=== PATIENT | male | born 1970 | race Caucasian/White ===

== ENCOUNTER 2016-07-06 06:35 | Outpatient (CLI) | payer MEDICARE, MEDICAID | END 2016-07-06 06:36 | disposition home or self-care (01) | DX: I10 Essential (primary) hypertension (principal); Z79.899 Other long term (current) drug therapy; E78.5 Hyperlipidemia, unspecified ==

== ENCOUNTER 2016-10-06 13:19 | Outpatient (CLI) | payer MEDICARE, OTHER | END 2016-10-06 13:20 | disposition home or self-care (01) | DX: E67.8 Other specified hyperalimentation (principal); E03.9 Hypothyroidism, unspecified ==

== ENCOUNTER 2017-06-12 08:00 | Outpatient (CLI) | payer MEDICARE, OTHER ==
[2017-06-12 13:10] LABS: ALBUMIN 3.7 g/dL (3.2-5.5); ALBUMIN/GLOBULIN RATIO 1.1 (1.0-2.2); BILIRUBIN,TOTAL 0.5 mg/dL (0.2-1.0); CREATININE 1.1 mg/dL (0.6-1.2); TOTAL PROTEIN 7.1 g/dL (6.7-8.2)
== END 2017-06-12 08:01 | disposition home or self-care (01) ==
LOC: LAB.N 08:00
PROVIDERS: ATTEND Internal Medicine Cardiovascular Disease
DX: I10 Essential (primary) hypertension (principal); R00.2 Palpitations
CPT/HCPCS: 36415; 80053

== ENCOUNTER 2017-06-26 08:00 | Outpatient (CLI) | payer MEDICARE, OTHER ==
[2017-06-26 12:46] LABS: BUN - BLOOD UREA NITROGEN 15 mg/dL (6-20); CALCIUM 9.1 mg/dL (8.5-10.3); CARBON DIOXIDE - CO2 27 mmol/L (21-32); CHLORIDE 103 mmol/L (101-111); CREATININE 1.1 mg/dL (0.6-1.2); GFR - MDRD 71 (>89); GLUCOSE 101 mg/dL (70-100); SODIUM 138 mmol/L (135-145)
== END 2017-06-26 08:01 | disposition home or self-care (01) ==
LOC: LAB.N 08:00
PROVIDERS: ATTEND Nurse Practitioner Gerontology
DX: E87.6 Hypokalemia (principal); E03.9 Hypothyroidism, unspecified
CPT/HCPCS: 36415; 80048; 84443

== ENCOUNTER 2017-10-18 11:06 | Outpatient (CLI) | payer MEDICARE, OTHER ==
--- NOTE | 2017-10-18 13:12 | Ultrasound Report ---
COMPLETE ABDOMINAL ULTRASOUND: 10/18/2017 CLINICAL INDICATION: Pain, nausea, constipation. TECHNIQUE: Real-time scanning was performed with representative phlebotomy services static images obtained. FINDINGS: The liver measures 18.9 cm. Hepatic echogenicity is increased, compatible with fatty infiltration. No focal parenchymal lesion or intrahepatic biliary dilatation is present. The common bile duct measures 5 mm. The visualized pancreas is unremarkable. The kidneys are normal, with the right measuring 12.0 cm and the left measuring 13.3 cm. The spleen measures 11.7 cm, and demonstrates normal echotexture. The abdominal aorta is normal in caliber. The inferior vena cava is unremarkable. No free fluid is present. IMPRESSION: FATTY INFILTRATION OF THE LIVER. NO EVIDENCE OF CHOLELITHIASIS OR BILIARY DILATATION. TD: 10/18/2017 13:04
== END 2017-10-18 11:07 | disposition home or self-care (01) ==
LOC: DI 11:06
PROVIDERS: ATTEND Internal Medicine Gastroenterology
DX: R10.11 Right upper quadrant pain (principal); R11.0 Nausea; K59.00 Constipation, unspecified
CPT/HCPCS: 76700

== ENCOUNTER 2018-02-11 17:25 | Emergency (ER) | payer MEDICARE, OTHER ==
[2018-02-11 17:47] VITALS: BP 141/87
[2018-02-11] MEDS ORDERED: TETANUS/DIPHTHERIA/PERTUSSIS 0.5 ML SYRINGE IM ONE (18:59)
--- NOTE | 2018-02-11 19:00 | ED Physician Documentation ---
PD HPI UPPER EXT INJURY - Stated complaint Stated Complaint: L HAND LAC - Chief complaint Chief Complaint: Laceration - History obtained from History obtained from: Patient - History of Present Illness Location: Left (Right-handed gentleman with unknown tetanus status cut himself with a lid of a pea can just prior to arrival at home between the first and second digits of the left hand.) Review of Systems Constitutional: reports: Reviewed and negative Cardiac: reports: Reviewed and negative Respiratory: reports: Reviewed and negative PD PAST MEDICAL HISTORY - Past Medical History Past Medical History: Yes Cardiovascular: Hypertension, High cholesterol - Past Surgical History Past Surgical History: Yes - Present Medications Home Medications: Ambulatory Orders Medication Instructions Recorded Confirmed Aspirin Chewable [[place] 81 mg PO DAILY 12/01/13 12/01/13 Aspirin] Atorvastatin [Lipitor] 20 mg PO DAILY 12/01/13 12/01/13 Chlorthalidone 12.5 mg PO DAILY 12/01/13 12/01/13 Clonazepam 0.5 mg PO Q4HR PRN 12/01/13 12/01/13 Dithen/Atrop 2.5 mg PO TID 12/01/13 12/01/13 Ibuprofen 600 mg PO TID PRN 12/01/13 12/01/13 Ibuprofen [Motrin] 800 mg PO Q8H PRN #30 tablet 12/01/13 Losartan [Cozaar] 25 mg PO DAILY 12/01/13 12/01/13 Naftifine HCl [Naftin] 40 gm TP BID 12/01/13 12/01/13 Olmesartan Medoxomil [Benicar] 20 mg PO DAILY 12/01/13 12/01/13 Omeprazole 20 mg PO DAILY 12/01/13 12/01/13 Propranolol [Inderal] 40 mg PO BID 12/01/13 12/01/13 Simvastatin 20 mg PO DAILY 12/01/13 12/01/13 - Allergies Allergies/Adverse Reactions: Allergies Allergy/AdvReac Type Severity Reaction Status Date / Time No Known Drug Allergies Allergy Verified 12/01/13 16:55 - Social History Does the pt smoke?: No Smoking Status: Never smoker Does the pt drink ETOH?: No Does the pt have substance abuse?: No PD ED PE NORMAL - Vitals Vital signs reviewed: Yes - General General: Alert and oriented X 3, No acute distress - Extremities Extremities: Other (Is a 2 cm V-shaped laceration right in the central webspace between the first and second digits of the left hand.) - Neuro Neuro: Alert and oriented X 3, Normal speech Results - Vitals Vitals: Vital Signs - 24 hr 02/11/18 17:41 Temperature 36.5 C Heart Rate 62 Respiratory 16 Rate Blood Pressure 141/87 H O2 Saturation 95 Oxygen O2 Source Room air Procedures - Laceration (location) L hand Length in cm: 2 Wound type: Linear Neurovascular status: Sensory intact (tips 1st/2nd digits), Motor intact, Vascular intact Anesthesia: Lidocaine 1% with epi Wound Preparation: Irrigated copiously NS Skin layer closure: Nylon, Interrupted, Size #-0 - enter number (4-0), Sutures - enter # (5) Other: Tetanus booster given Complexity: Simple PD MEDICAL DECISION MAKING - Sepsis Event Vital Signs: Vital Signs - 24 hr 02/11/18 17:41 Temperature 36.5 C Heart Rate 62 Respiratory 16 Rate Blood Pressure 141/87 H O2 Saturation 95 Oxygen O2 Source Room air Departure - Departure Disposition: 01 Home, Self Care Clinical Impression: Laceration Condition: Good Record reviewed to determine appropriate education?: Yes Instructions: ED Laceration Hand Comments: Come back for any signs of infection which would include: Redness, swelling, drainage, increased pain, or fevers. Follow-up with your physician in 14 days for suture removal. Your blood pressure was elevated today on check into the emergency department. This does not mean that you have hypertension, it is a common phenomenon to come to the emergency department and have elevated blood pressure. I recommend that you see your primary care physician within the week to have it rechecked when you are feeling better.
== END 2018-02-11 19:21 | disposition home or self-care (01) ==
LOC: ED 17:25
DX: S61.412A Laceration without foreign body of left hand, initial encounter (principal); W26.8XXA Contact with other sharp object(s), not elsewhere classified, initial encounter; Y92.009 Unspecified place in unspecified non-institutional (private) residence as the place of occurrence of the external cause; I10 Essential (primary) hypertension; E78.00 Pure hypercholesterolemia, unspecified; Z79.82 Long term (current) use of aspirin
CPT/HCPCS: 12001; 99282; 99283

== ENCOUNTER 2018-02-28 13:21 | Emergency (ER) | payer MEDICARE, OTHER ==
[2018-02-28 13:57] LABS: BASOPHILS # (AUTO) 0.1 10^3/uL (0.0-0.1); BASOPHILS % (AUTO) 1.2 %; EOSINOPHILS # (AUTO) 0.4 10^3/uL (0.0-0.7); EOSINOPHILS % (AUTO) 5.8 %; HGB - HEMOGLOBIN 15.9 g/dL (14.0-18.0); LYMPHOCYTES # (AUTO) 1.3 10^3/uL (1.5-3.5); LYMPHOCYTES % (AUTO) 18.4 %; MEAN CORPUSCULAR HEMOGLOBIN 30.9 pg (27.0-31.0); MEAN CORPUSCULAR HGB CONC 34.6 g/dL (32.0-36.0); MEAN CORPUSCULAR VOLUME 89.3 fL (80.0-94.0); MONOCYTES # (AUTO) 0.6 10^3/uL (0.0-1.0); MONOCYTES % (AUTO) 8.6 %; NEUTROPHILS # (AUTO) 4.6 10^3/uL (1.5-6.6); PLT - PLATELET COUNT 260 10^3/uL (130-450); RED BLOOD COUNT 5.14 10^6/uL (4.70-6.10); RED CELL DISTRIBUTION WIDTH 13.3 % (12.0-15.0); WHITE BLOOD COUNT 6.9 x10^3/uL (4.8-10.8)
[2018-02-28 14:11] LABS: ALBUMIN 3.9 g/dL (3.2-5.5); ALBUMIN/GLOBULIN RATIO 1.1 (1.0-2.2); BILIRUBIN,TOTAL 0.8 mg/dL (0.2-1.0); CALCIUM 9.1 mg/dL (8.5-10.3); CREATININE 1.1 mg/dL (0.6-1.2); TOTAL PROTEIN 7.4 g/dL (6.7-8.2)
--- NOTE | 2018-02-28 14:20 | XRAY Report ---
Reason: Chest pain Procedure Date: 02/28/2018 Accession Number: [id number] / [id number] Procedure: XR - Chest 2 View X-Ray CPT Code: 18126 FULL RESULT: EXAM: CHEST RADIOGRAPHY EXAM DATE: 02/28/2018 02:06 PM. CLINICAL HISTORY: Chest pain. No known trauma. COMPARISON: 08/06/2014 10:23 AM XR CHEST PA AND LAT 08/02/2009 12:49 PM. TECHNIQUE: 2 views. FINDINGS: Lungs/Pleura: No focal opacities evident. No pleural effusion. No pneumothorax. Normal volumes. Mediastinum: Large bilateral pericardial fat pads gradually increasing since 2009. Stable mild cardiomegaly. Stable large hiatal hernia. No tracheal shift. Other: None. IMPRESSION: 1. Mild cardiomegaly. 2. Large hiatal hernia. RADIA
--- NOTE | 2018-02-28 16:13 | ED Physician Documentation ---
PD HPI CHEST PAIN - Stated complaint Stated Complaint: HIGH BP, CHEST PX - Chief complaint Chief Complaint: Cardiac - History obtained from History obtained from: Patient, Family - History of Present Illness Timing - onset: Other (The last 5 days he has had constant left-sided chest pain that radiates into the armpit. It is worse when he is laying flat and seems to bother him most in the middle of the night. It is not associated with exertion or shortness of breath. He is not dizzy. He has no back pain with it that is new, he does have chronic low back pain.) Review of Systems Constitutional: denies: Fever, Chills, Fatigue Cardiac: denies: Palpitations Respiratory: denies: Dyspnea, Cough GI: denies: Abdominal Pain, Nausea, Vomiting, Diarrhea PD PAST MEDICAL HISTORY - Past Medical History Cardiovascular: Hypertension, High cholesterol - Past Surgical History Past Surgical History: Yes - Present Medications Home Medications: Ambulatory Orders Medication Instructions Recorded Confirmed Aspirin Chewable [[place] 81 mg PO DAILY 12/01/13 12/01/13 Aspirin] Atorvastatin [Lipitor] 20 mg PO DAILY 12/01/13 12/01/13 Chlorthalidone 12.5 mg PO DAILY 12/01/13 12/01/13 Clonazepam 0.5 mg PO Q4HR PRN 12/01/13 12/01/13 Dithen/Atrop 2.5 mg PO TID 12/01/13 12/01/13 Ibuprofen 600 mg PO TID PRN 12/01/13 12/01/13 Ibuprofen [Motrin] 800 mg PO Q8H PRN #30 tablet 12/01/13 Losartan [Cozaar] 25 mg PO DAILY 12/01/13 12/01/13 Naftifine HCl [Naftin] 40 gm TP BID 12/01/13 12/01/13 Olmesartan Medoxomil [Benicar] 20 mg PO DAILY 12/01/13 12/01/13 Omeprazole 20 mg PO DAILY 12/01/13 12/01/13 Propranolol [Inderal] 40 mg PO BID 12/01/13 12/01/13 Simvastatin 20 mg PO DAILY 12/01/13 12/01/13 Sucralfate [Carafate] 1 gm PO ACHS #60 tablet 02/28/18 - Allergies Allergies/Adverse Reactions: Allergies Allergy/AdvReac Type Severity Reaction Status Date / Time No Known Drug Allergies Allergy Verified 02/28/18 13:34 - Social History Does the pt smoke?: No Smoking Status: Never smoker Does the pt drink ETOH?: No Does the pt have substance abuse?: No PD ED PE NORMAL - Vitals Vital signs reviewed: Yes - General General: Alert and oriented X 3, No acute distress - Neck Neck: Supple, no meningeal sign, No bony TTP - Cardiac Cardiac: RRR, No murmur, Strong equal pulses, Other (Some TTP Left ant Chest Wall) - Respiratory Respiratory: No respiratory distress, Clear bilaterally - Abdomen Abdomen: Soft, Non tender - Back Back: No CVA TTP, No spinal TTP - Extremities Extremities: No edema, No calf tenderness / cord - Neuro Neuro: Alert and oriented X 3, Normal speech - Psych Psych: Normal mood, Normal affect Results - Vitals Vitals: Vital Signs - 24 hr 02/28/18 13:28 Temperature 36.3 C L Heart Rate 64 Respiratory 16 Rate Blood Pressure 134/84 H O2 Saturation 96 Oxygen O2 Source Room air - EKG (time done) 340 Rate: Rate (enter#) (65) Rhythm: NSR, LAE Intervals: RBBB Ischemia: Normal ST segments Computer interpretation: Agree with computer - Labs Labs: Laboratory Tests 02/28/18 02/28/18 02/28/18 13:43 13:43 13:43 WBC 6.9 RBC 5.14 Hgb 15.9 Hct 45.9 MCV 89.3 MCH 30.9 MCHC 34.6 RDW 13.3 Plt Count 260 MPV 7.0 L Neut # (Auto) 4.6 Lymph # (Auto) 1.3 L [place] # (Auto) 0.6 Eos # (Auto) 0.4 Baso # (Auto) 0.1 Absolute Nucleated RBC 0.00 Nucleated RBC % 0.0 Sodium 135 Potassium 3.3 L Chloride 99 L Carbon Dioxide 27 Anion Gap 9.0 BUN 16 Creatinine 1.1 Estimated GFR (MDRD) 71 L Glucose 147 H Calcium 9.1 Total Bilirubin 0.8 AST 29 ALT 30 Alkaline Phosphatase 101 Troponin I < 0.04 Total Protein 7.4 Albumin 3.9 Globulin 3.5 Albumin/Globulin Ratio 1.1 Lipase 27 - Rads (name of study) 2v chest Radiology: EMP read contemporaneously (Mild cardiomegaly, large hiatal hernia.) PD MEDICAL DECISION MAKING - ED course ED course: 47-year-old gentleman with constant atypical chest pain of 5 days duration. Single negative troponin and nonischemic EKG should be predictive. Pattern is most consistent with hiatal hernia pain, less so musculoskeletal. May be a component of both. - Sepsis Event Vital Signs: Vital Signs - 24 hr 02/28/18 13:28 Temperature 36.3 C L Heart Rate 64 Respiratory 16 Rate Blood Pressure 134/84 H O2 Saturation 96 Oxygen O2 Source Room air Departure - Departure Disposition: 01 Home, Self Care Clinical Impression: Hiatal hernia Chest pain Qualifiers: Chest pain type: unspecified Qualified Code(s): R07.9 - Chest pain, unspecified Condition: Good Record reviewed to determine appropriate education?: Yes Instructions: ED Chest Pain NonCardiac Prescriptions: Sucralfate [Carafate] 1 gm PO ACHS #60 tablet Comments: Follow-up with your primary care physician, discuss follow-up stress testing. If symptoms are persistent, consider evaluation for surgery for the hiatal hernia. And/or GI referral. Return if worse or if new symptoms develop.
[2018-02-28 16:21] VITALS: BP 129/84
== END 2018-02-28 16:15 | disposition home or self-care (01) ==
LOC: ED 13:21
DX: K44.9 Diaphragmatic hernia without obstruction or gangrene (principal); R07.89 Other chest pain; I45.10 Unspecified right bundle-branch block; I10 Essential (primary) hypertension; Z79.82 Long term (current) use of aspirin
CPT/HCPCS: 36415; 71046; 80053; 83690; 84484; 85025; 93005; 99283

== ENCOUNTER 2018-05-08 12:40 | Outpatient (CLI) | payer MEDICARE, OTHER ==
--- NOTE | 2018-05-08 16:04 | XRAY Report ---
Reason: HIATAL HERNIA Procedure Date: 05/08/2018 Accession Number: [id number] / [id number] Procedure: XR - Chest 2 View X-Ray CPT Code: 62484 FULL RESULT: EXAM: CHEST RADIOGRAPHY EXAM DATE: 05/08/2018 01:56 PM. CLINICAL HISTORY: Hiatal hernia. Scheduled operation. COMPARISON: Chest 2 view 02/28/2018 1:51 PM. TECHNIQUE: 2 views. FINDINGS: Lungs/Pleura: No focal opacities evident. No pleural effusion. No pneumothorax. Normal volumes. Mediastinum: The cardiomediastinal silhouette is stable. Other: None. IMPRESSION: No acute cardiopulmonary abnormality. RADIA
== END 2018-05-08 12:41 | disposition home or self-care (01) ==
LOC: DI 12:40
PROVIDERS: ATTEND Surgery
DX: K44.9 Diaphragmatic hernia without obstruction or gangrene (principal)
CPT/HCPCS: 71046

== ENCOUNTER 2018-05-22 12:47 | Outpatient (CLI) | payer MEDICARE, OTHER ==
--- NOTE | 2018-05-22 15:03 | XRAY Report ---
Reason: HIATAL HERNIA Procedure Date: 05/22/2018 Accession Number: [id number] / [id number] Procedure: FL - Esophogram CPT Code: FULL RESULT: EXAM: BARIUM ESOPHAGRAM EXAM DATE: 05/22/2018 01:54 PM. CLINICAL HISTORY: HIATAL HERNIA. COMPARISONS: CHEST 2 VIEW 05/08/2018 2:06 PM CHEST 2 VIEW 02/28/2018 1:51 PM. TECHNIQUE: Routine double contrast esophagram. Fluoroscopy Time: 2 minutes, 48 seconds. Number of Images: 7. FINDINGS: Note: Regrading long fluoroscopy time. There was technical difficulty with image capture of the fluoroscopic unit during performance of the procedure which necessitated several repeat attempts to obtain static images of the esophageal mucosa and motility. Provided image documentation is limited; however, real-time visualization of the exam was well documented by the radiologist and described below. Swallowing Mechanism: Normal. No tracheal aspiration or penetration. Esophageal Motility: Normal peristaltic stripping wave. Mucosa: Normal. No ulcerations or masses. Gastroesophageal Junction: Moderate-sized hiatal hernia variable in size. No stricture or obstruction to flow. Other: Normal passage of barium pill. IMPRESSION: 1. Normal swallowing mechanics and esophageal motility/mucosa. 2. Moderate-sized hiatal hernia. RADIA
== END 2018-05-22 12:48 | disposition home or self-care (01) ==
LOC: DI 12:47
PROVIDERS: ATTEND Surgery
DX: K44.9 Diaphragmatic hernia without obstruction or gangrene (principal)
CPT/HCPCS: 74220

== ENCOUNTER 2018-09-30 12:45 | Outpatient (CLI) | payer MEDICARE, OTHER | END 2018-09-30 12:46 | disposition home or self-care (01) | LOC: SC 12:45 | PROVIDERS: ATTEND Internal Medicine Pulmonary Disease | DX: G47.33 Obstructive sleep apnea (adult) (pediatric) (principal); G47.00 Insomnia, unspecified | CPT/HCPCS: 99213; G0463; 99212 ==

== ENCOUNTER 2018-11-04 08:04 | Outpatient (CLI) | payer MEDICARE, OTHER ==
--- NOTE | 2018-11-04 10:32 | Ultrasound Report ---
Reason: ABDOMINAL PAIN Procedure Date: 11/04/2018 Accession Number: [id number] / [id number] Procedure: US - Abdomen Limited CPT Code: FULL RESULT: EXAM: ABDOMEN ULTRASOUND LIMITED, LUQ EXAM DATE: 11/04/2018 08:42 AM. CLINICAL HISTORY: Abdominal pain. COMPARISON: None. TECHNIQUE: Real-time scanning was performed with static images obtained. FINDINGS: The left upper abdominal quadrant was interrogated. Spleen appears sonographically within normal limits with dimensions of 11.9 x 3.5 x 10.0 cm for a volume of 218 cc. The left kidney measures up to 12.4 cm in maximal sagittal dimension and demonstrates preserved parenchymal echotexture with grossly preserved vascular flow by color Doppler, limited. No hydronephrosis, calculus or solid contour deforming masses detected. No abscess, collection or masses seen in the left upper quadrant. IMPRESSION: Normal study. RADIA
== END 2018-11-04 08:05 | disposition home or self-care (01) ==
LOC: DI 08:04
PROVIDERS: ATTEND Nurse Practitioner Gerontology
DX: R10.9 Unspecified abdominal pain (principal)
CPT/HCPCS: 76705

== ENCOUNTER 2018-11-25 08:15 | Outpatient (CLI) | payer MEDICARE, OTHER ==
[2018-11-25] MEDS ORDERED: IOVERSOL 320 50 ML VIAL ONE (08:35)
[2018-11-25] MEDS ORDERED: IOVERSOL 320 100 ML VIAL IVP ONE ×2 (08:35→16:54)
--- NOTE | 2018-11-25 11:49 | CT Report ---
Reason: RUQ PAIN, LUQ PAIN, GASTROESOPHAGEAL REFLUX DISEAS Procedure Date: 11/25/2018 Accession Number: [id number] / [id number] Procedure: CT - Abdomen/Pelvis W CPT Code: FULL RESULT: EXAM: CT ABDOMEN AND PELVIS EXAM DATE: 11/25/2018 10:27 AM. CLINICAL HISTORY: Right upper quadrant pain, left upper quadrant pain, gastroesophageal reflux disease. COMPARISONS: ABDOMEN/PELVIS W/ 05/30/2013 9:21 AM. TECHNIQUE: Routine helical CT imaging was performed through the abdomen and pelvis. IV contrast: 100 mL Optiray 320. Enteric contrast: Yes. Reconstructions: Coronal and sagittal. In accordance with CT protocol optimization, one or more of the following dose reduction techniques were utilized for this exam: automated exposure control, adjustment of mA and/or KV based on patient size, or use of iterative reconstructive technique. FINDINGS: Lung Bases: Redemonstration of a 7.3 x 3.2 cyst as seen on image 8 series 3. Liver: Normal. No masses. Gallbladder/Bile Ducts: Unremarkable. Spleen: Normal. Pancreas: Normal. Adrenal Glands: Normal. Kidneys: Normal. No masses or hydronephrosis. Peritoneal Cavity/Bowel: There is a hiatal hernia, at least moderate size and subjectively increased compared to 2012. There is descending colonic diverticulosis. There is no bowel obstruction. There is no free fluid or free air. There is no lymphadenopathy by size criteria. The appendix is not seen. Pelvic Organs: Normal. The bladder and visualized pelvic organs are within normal limits. Vasculature: No aneurysms or other significant abnormality. Bones: No significant abnormality. Other: None. IMPRESSION: Increasing at least moderate-sized hiatal hernia. RADIA
[2018-11-25] MEDS ORDERED: IOVERSOL 320 50 ML VIAL PO ONE (16:54)
== END 2018-11-25 08:16 | disposition home or self-care (01) ==
LOC: DI 08:15
PROVIDERS: ATTEND Internal Medicine Gastroenterology
DX: K44.9 Diaphragmatic hernia without obstruction or gangrene (principal)
CPT/HCPCS: 74177; Q9967

== ENCOUNTER 2018-11-28 08:31 | Outpatient (CLI) | payer MEDICARE, OTHER ==
--- NOTE | 2018-11-28 17:16 | Nuclear Medicine Report ---
Reason: RUQ PAIN, LUQ PAIN, GASTROESOPHAGEAL REFLUX DISEAS Procedure Date: 11/28/2018 Accession Number: [id number] / [id number] Procedure: NM - Gastric Empty Small Bowel CPT Code: FULL RESULT: EXAM: GASTRIC EMPTYING STUDY EXAM DATE: 11/28/2018 02:00 PM. CLINICAL HISTORY: RUQ PAIN, LUQ PAIN, GASTROESOPHAGEAL REFLUX DISEASE. COMPARISON: None. TECHNIQUE: A standard meal was radiolabeled with 1.1 mCi Tc-99m sulfur colloid according to protocol. Following the oral administration of this meal, the patient underwent multiple static images over the abdomen from the anterior and posterior projections, at approximately 0, 1, 2,3 and 4 hours following the ingestion of the meal. Region of interest analysis was employed, and percent emptied/percent remaining of the meal was calculated using both the geometric mean and decay corrections. FINDINGS: Calculations demonstrate: TIME (hours) Percent remaining. Normal values for percent remaining. 1 hour: 19% (30-90%) 2 hours: 3% (0-60%) 3 hours: 3% (0-30%) 4 hours: 3% (0-10%) IMPRESSION: Findings suggest abnormally rapid gastric emptying. RADIA
== END 2018-11-28 08:32 | disposition home or self-care (01) ==
LOC: DI 08:31
PROVIDERS: ATTEND Internal Medicine Gastroenterology
DX: R10.11 Right upper quadrant pain (principal); R10.12 Left upper quadrant pain; K21.9 Gastro-esophageal reflux disease without esophagitis; R68.81 Early satiety
CPT/HCPCS: 78265

== ENCOUNTER 2019-03-03 08:00 | Outpatient (CLI) | payer MEDICARE, OTHER, MEDICAID | END 2019-03-03 23:59 | disposition home or self-care (01) | LOC: LAB.R 08:00 | PROVIDERS: ATTEND Nurse Practitioner Gerontology | DX: Z71.89 Other specified counseling (principal) | CPT/HCPCS: 36415; 86735; 86762; 86765 ==

== ENCOUNTER 2019-03-24 10:40 | Outpatient (CLI) | payer MEDICARE, OTHER, MEDICAID ==
[2019-03-24 19:17] LABS: ALBUMIN 3.8 g/dL (3.2-5.5); ALBUMIN/GLOBULIN RATIO 1.1 (1.0-2.2); ALKALINE PHOSPHATASE 89 IU/L (42-121); ALT ALANINE AMINOTRANSFERASE 22 IU/L (10-60); AST ASPARTATE AMINOTRANSFERASE 21 IU/L (10-42); BILIRUBIN,TOTAL 0.6 mg/dL (0.2-1.0); BUN - BLOOD UREA NITROGEN 16 mg/dL (6-20); CALCIUM 9.2 mg/dL (8.5-10.3); CARBON DIOXIDE - CO2 27 mmol/L (21-32); CHLORIDE 103 mmol/L (101-111); CHOL/HDL RATIO 4.6 (<5.0); CHOLESTEROL 153 mg/dL; GFR - MDRD 79 (>89); GLUCOSE 88 mg/dL (70-100); HDL CHOLESTEROL 33 mg/dL; LDL CHOLESTEROL,CALCULATED 98 mg/dL; SODIUM 139 mmol/L (135-145); TOTAL PROTEIN 7.2 g/dL (6.7-8.2); VLDL CHOLESTEROL 22 mg/dL
== END 2019-03-24 23:59 | disposition home or self-care (01) ==
LOC: LAB.N 10:40
PROVIDERS: ATTEND Nurse Practitioner Gerontology
DX: I10 Essential (primary) hypertension (principal); Z79.899 Other long term (current) drug therapy; E78.5 Hyperlipidemia, unspecified; R60.0 Localized edema; R06.02 Shortness of breath
CPT/HCPCS: 36415; 80053; 80061; 83721; 83880; 84443

== ENCOUNTER 2019-10-13 17:10 | Outpatient (CLI) | payer MEDICARE, OTHER, MEDICAID | END 2019-10-13 17:11 | disposition home or self-care (01) | LOC: COV 17:10 | PROVIDERS: ATTEND Family Medicine | DX: R05 Cough (principal); R06.02 Shortness of breath; R53.83 Other fatigue; J02.9 Acute pharyngitis, unspecified | CPT/HCPCS: 81599 ==

== ENCOUNTER 2019-10-21 10:00 | Outpatient (CLI) | payer MEDICARE, OTHER, MEDICAID ==
--- NOTE | 2019-10-21 18:02 | XRAY Report ---
Reason: ACUTE BRONCHITIS, UNSPECIFIED Procedure Date: 10/21/2019 Accession Number: [id number] / [id number] Procedure: XR - Chest 2 View X-Ray CPT Code: 04974 Final Report FULL RESULT: EXAM: CHEST RADIOGRAPHY EXAM DATE: 10/21/2019 10:13 AM. CLINICAL HISTORY: ACUTE BRONCHITIS, UNSPECIFIED. COMPARISON: ABDOMEN/PELVIS / 11/25/2018 10:27 AM CHEST 2 VIEW 05/08/2018 2:06 PM. TECHNIQUE: 2 views. FINDINGS: LUNGS: The lungs are clear. PLEURA: No significant pleural effusion. No clinically significant pneumothorax. MEDIASTINUM: Enlarged cardiac silhouette, similar to prior. Again prominence of of the right cardiophrenic angle consistent with the cyst seen on prior CT. Again moderate sized hiatal hernia. BONES: No suspicious osseous lesions. Again compression fracture of the lower thoracic vertebral body. IMPRESSION: No acute cardiopulmonary abnormality. No significant change from prior. Please note, bronchitis can be occult on chest x-ray. RADIA
== END 2019-10-21 10:01 | disposition home or self-care (01) ==
LOC: DI 10:00
PROVIDERS: ATTEND Family Medicine
DX: J20.9 Acute bronchitis, unspecified (principal)
CPT/HCPCS: 71046

== ENCOUNTER 2020-04-08 10:22 | Outpatient (CLI) | payer MEDICARE, OTHER, MEDICAID ==
--- NOTE | 2020-04-08 16:03 | XRAY Report ---
PROCEDURE: Hip w/Pelvis 2-3V LT INDICATIONS: ARTHRALGIA TECHNIQUE: AP pelvis with lateral view(s) of the bilateral hip(s). COMPARISON: None. FINDINGS: Bones: No fractures or dislocations. Pelvic ring appears intact. No suspicious bony lesions. Soft tissues: The visualized bowel gas pattern is normal. No suspicious soft tissue calcifications. IMPRESSION: No osseous lesion. If there is continued clinical concern for pathology, then advanced imaging (CT, M R, bone scan) should be considered for further evaluation. Reviewed by: Carli Watkins MD, PhD on 04/08/2020 4:01 PM PST Approved by: Carli Watkins MD, PhD on 04/08/2020 4:01 PM [facility] Station ID: [id number]
== END 2020-04-08 10:23 | disposition home or self-care (01) ==
LOC: DI 10:22
PROVIDERS: ATTEND Family Medicine
DX: M25.552 Pain in left hip (principal)

== ENCOUNTER 2020-10-04 12:09 | Outpatient (CLI) | payer MEDICARE, OTHER, MEDICAID ==
[2020-10-04 13:14] LABS: BASOPHILS # (AUTO) 0.1 10^3/uL (0.0-0.1); BASOPHILS % (AUTO) 0.6 %; EOSINOPHILS # (AUTO) 0.4 10^3/uL (0.0-0.7); HCT - HEMATOCRIT 46.4 % (42.0-52.0); HGB - HEMOGLOBIN 15.4 g/dL (14.0-18.0); LYMPHOCYTES # (AUTO) 1.3 10^3/uL (1.5-3.5); LYMPHOCYTES % (AUTO) 14.9 %; MEAN CORPUSCULAR HEMOGLOBIN 30.4 pg (27.0-31.0); MEAN CORPUSCULAR HGB CONC 33.2 g/dL (32.0-36.0); MEAN CORPUSCULAR VOLUME 91.7 fL (80.0-94.0); MEAN PLATELET VOLUME 8.8 fL (7.4-11.4); MONOCYTES # (AUTO) 0.8 10^3/uL (0.0-1.0); MONOCYTES % (AUTO) 8.8 %; NEUTROPHILS # (AUTO) 6.2 10^3/uL (1.5-6.6); NEUTROPHILS % (AUTO) 70.4 %; PLT - PLATELET COUNT 286 10^3/uL (130-450); RED BLOOD COUNT 5.06 10^6/uL (4.70-6.10); RED CELL DISTRIBUTION WIDTH 13.3 % (12.0-15.0); WHITE BLOOD COUNT 8.8 x10^3/uL (4.8-10.8)
--- NOTE | 2020-10-04 13:29 | CT Report ---
PROCEDURE: Abdomen/Pelvis WO INDICATIONS: EPIGASTRIC PAIN TECHNIQUE: Noncontrast 5 mm thick sections acquired from the diaphragms to the symphysis. 5 mm coronal and sagi ttal reformats were then performed. For radiation dose reduction, the following was used: automated exposure control, adjustment of mA and/or kV according to patient size. COMPARISON: CT abdomen/pelvis 11/25/2018 FINDINGS: Image quality: Excellent. ABDOMEN: Lung bases: Lung bases are clear. Heart size is normal. Moderate-sized hiatal hernia behind the he art and note also is made of a right pericardiophrenic cyst measuring water in density and simple in appearance, also present on prior CT scanning from November 2018. Solid organs: Liver and spleen are normal in size. Gallbladder is not currently visualized, but was present in 2019. Presumed cholecystectomy or contraction of the gallbladder. No metallic surgical cl ips seen. Pancreas is normal in contours. No adrenal nodules. Kidneys are normal in size, without hydronephrosis or nephrolithiasis. Peritoneum and bowel: Unenhanced bowel loops demonstrate normal wall thickness and caliber. No free fluid or air. Nodes and vessels: No retroperitoneal or mesenteric adenopathy by size criteria. Aorta and inferior vena cava are normal in caliber. Miscellaneous: No ventral hernias. PELVIS: Genitourinary: Bladder wall thickness is normal. Miscellaneous: No inguinal hernias or adenopathy. Bones: No suspicious bony lesions. No vertebral body compression fractures. IMPRESSION: 1. Note is made of a moderate-sized hiatal hernia behind the heart without evidence of volvulus. 2. The gallbladder was visualized on the prior study in 2019 but is not visualized on the current exa mination. No metallic surgical clips are seen. Occasionally cholecystectomy is performed without use of metallic surgical clips but the gallbladder also could be strongly contracted and was not visualiz ed. No biliary distention is seen. 3. 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 Reviewed by: Nato Fonseca MD on 10/04/2020 1:27 PM PDT Approved by: Nato Fonseca MD on 10/04/2020 1:27 PM PDT Station ID: [id number]
[2020-10-04 13:30] LABS: ALBUMIN 4.2 g/dL (3.2-5.5); ALBUMIN/GLOBULIN RATIO 1.3 (1.0-2.2); BILIRUBIN,TOTAL 0.9 mg/dL (0.2-1.0); CALCIUM 9.6 mg/dL (8.5-10.3); CREATININE 1.1 mg/dL (0.6-1.2); POTASSIUM 3.9 mmol/L (3.5-5.0); TOTAL PROTEIN 7.5 g/dL (6.7-8.2)
--- NOTE | 2020-10-04 13:31 | XRAY Report ---
PROCEDURE: Chest 2 View X-Ray INDICATIONS: EPIGASTRIC PAIN TECHNIQUE: 2 view(s) of the chest. COMPARISON: CT abdomen/pelvis today and also from 2019 reviewed.. FINDINGS: Surgical changes and devices: None. Lungs and pleura: No pleural effusions or pneumothorax. Lungs are clear. Mediastinum: Mediastinal contours are normal except for a moderate size hiatal hernia behind the hea rt. This is better visualized on CT scanning performed same day.. Heart size is enlarged in transver se dimension but a portion of this is secondary to a relatively prominent right pericardiophrenic cys t seen along the right cardiac border present also in 2019. Actual size of heart on CT scanning is no rmal. Bones and chest wall: No suspicious bony abnormalities. Soft tissues appear unremarkable. IMPRESSION: No definite acute disease over the chest. Prominent right pericardiophrenic cyst seen al so by CT today and also a moderate-sized posterior mediastinal hiatal hernia is noted on CT scanning. Overall, a definite source of epigastric pain is not found. Reviewed by: Nato Fonseca MD on 10/04/2020 1:29 PM PDT Approved by: Nato Fonseca MD on 10/04/2020 1:29 PM PDT Station ID: [id number]
== END 2020-10-04 12:10 | disposition home or self-care (01) ==
LOC: DI 12:09
PROVIDERS: ATTEND Family Medicine
DX: K44.9 Diaphragmatic hernia without obstruction or gangrene (principal); I31.8 Other specified diseases of pericardium; R93.2 Abnormal findings on diagnostic imaging of liver and biliary tract; R10.13 Epigastric pain; Z79.899 Other long term (current) drug therapy; E78.00 Pure hypercholesterolemia, unspecified; E03.9 Hypothyroidism, unspecified; E66.8 Other obesity; I10 Essential (primary) hypertension
CPT/HCPCS: 36415; 80053; 82150; 83690; 85025

== ENCOUNTER 2020-12-11 11:18 | Outpatient (CLI) | payer MEDICARE, OTHER, MEDICAID ==
[2020-12-11 11:54] LABS: BASOPHILS # (AUTO) 0.1 10^3/uL (0.0-0.1); BASOPHILS % (AUTO) 0.8 %; EOSINOPHILS # (AUTO) 0.5 10^3/uL (0.0-0.7); EOSINOPHILS % (AUTO) 6.5 %; HCT - HEMATOCRIT 44.2 % (42.0-52.0); HGB - HEMOGLOBIN 14.6 g/dL (14.0-18.0); LYMPHOCYTES # (AUTO) 1.4 10^3/uL (1.5-3.5); LYMPHOCYTES % (AUTO) 17.6 %; MEAN CORPUSCULAR HEMOGLOBIN 29.4 pg (27.0-31.0); MEAN CORPUSCULAR VOLUME 88.9 fL (80.0-94.0); MEAN PLATELET VOLUME 8.5 fL (7.4-11.4); MONOCYTES # (AUTO) 0.8 10^3/uL (0.0-1.0); MONOCYTES % (AUTO) 9.4 %; NEUTROPHILS # (AUTO) 5.2 10^3/uL (1.5-6.6); NEUTROPHILS % (AUTO) 65.4 %; PLT - PLATELET COUNT 263 10^3/uL (130-450); RED BLOOD COUNT 4.97 10^6/uL (4.70-6.10)
[2020-12-11 12:04] LABS: CALCIUM 9.3 mg/dL (8.5-10.3); POTASSIUM 3.3 mmol/L (3.5-5.0)
[2020-12-11] MEDS ORDERED: IOVERSOL 320 100 ML VIAL IVP ONE (12:40)
--- NOTE | 2020-12-11 15:51 | CT Report ---
PROCEDURE: CHEST W INDICATIONS: PERICARDIAL CYST CONTRAST: IV CONTRAST: Optiray 320 ml: 100 PO CONTRAST: *NO PO CONTRAST TECHNIQUE: After the administration of intravenous contrast, 5 mm thick sections acquired from the pulmonary api jay to the posterior costophrenic angles. 7 mm thick coronal MIP reformats were acquired. For radia tion dose reduction, the following was used: automated exposure control, adjustment of mA and/or kV according to patient size. COMPARISON: Correlation is made with prior abdomen pelvis CT, 10/04/2020. Correlation is also made wit h prior chest radiograph, 10/04/2020. FINDINGS: Image quality: Excellent. Lungs and pleura: No acute air space opacities. No pleural effusions or pneumothorax. Central and peripheral airways are patent and normal in caliber. Mediastinum: Apparent pericardial cyst can be seen on the right measuring up to 7 cm and within the s uperior right posterior mediastinum measuring up to 3.5 cm. These pericardial cysts are simple appear ing, and measure water density. Heart size is normal. No pericardial effusion. No mediastinal or hi lar adenopathy by size criteria. Thoracic aorta and central pulmonary arteries are normal in size. I ncidental note is made of a common trunk off of the aorta of the right brachiocephalic artery and the left common carotid artery (bovine type aortic arch). This is considered to be a developmental varia nt of typically no clinical consequence. Esophagus is normal in caliber. There is a moderate to pro minent hiatal hernia. Bones and chest wall: No suspicious bony lesions. There is a chronic appearing T12 anterior wedge de formity present. No acute appearing vertebral body compression fractures. Age-appropriate degenerativ e changes are seen. No axillary or supraclavicular adenopathy by size criteria. The thyroid is sma ll in size.. Abdomen: No gallbladder is seen. Visualized upper abdominal solid organs appear normal. Upper abdomi nal bowel loops are normal in caliber. IMPRESSION: 2 simple appearing pericardial cysts are seen. Large hiatal hernia. 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 Gallbladder not seen. Reviewed by: Glenn Mitchell MD on 12/11/2020 2:49 PM [facility] Approved by: Glenn Mitchell MD on 12/11/2020 2:49 PM [facility] Station ID: [id number]
== END 2020-12-11 11:19 | disposition home or self-care (01) ==
LOC: LAB 11:18
PROVIDERS: ATTEND Thoracic Surgery (Cardiothoracic Vascular Surgery)
DX: I10 Essential (primary) hypertension (principal); Q24.8 Other specified congenital malformations of heart; I31.8 Other specified diseases of pericardium
CPT/HCPCS: 36415; 71260; 80048; 85025; Q9967

== ENCOUNTER 2021-01-03 10:09 | Outpatient (CLI) | payer MEDICARE, OTHER, MEDICAID ==
--- NOTE | 2021-01-03 11:30 | XRAY Report ---
PROCEDURE: Chest 2 View X-Ray INDICATIONS: BRONCHITIS TECHNIQUE: 2 view(s) of the chest. COMPARISON: None. FINDINGS: Surgical changes and devices: None. Lungs and pleura: No pleural effusions or pneumothorax. Lungs are mildly abnormal with a mild gener alized interstitial prominence perhaps reflecting prior smoking history.. Mediastinum: Mediastinal contours are normal except for generalized cardiomegaly and a moderate-size d hiatal hernia behind the heart.. Bones and chest wall: No suspicious bony abnormalities. Soft tissues appear unremarkable. IMPRESSION: Generalized cardiomegaly, interstitial prominence which may reflect prior smoking histor y but also can be seen in the setting of mild chronic CHF. Moderate-sized hiatal hernia behind the he art. A mild acute exacerbation of chronic CHF may be present. Reviewed by: Nato Fonseca MD on 01/03/2021 11:28 AM PDT Approved by: Nato Fonseca MD on 01/03/2021 11:28 AM PDT Station ID: [id number]
== END 2021-01-03 10:10 | disposition home or self-care (01) ==
LOC: DI.N 10:09
PROVIDERS: ATTEND Family Medicine
DX: J20.9 Acute bronchitis, unspecified (principal); R91.8 Other nonspecific abnormal finding of lung field; K44.9 Diaphragmatic hernia without obstruction or gangrene

== ENCOUNTER → 2022-03-29 | Outpatient (CLI) | payer MEDICARE, OTHER, MEDICAID | END | disposition short-term general hospital (02) | LOC: EMS 12:16 | DX: R06.00 Dyspnea, unspecified (principal); I48.91 Unspecified atrial fibrillation | CPT/HCPCS: A0425; A0429; A0888 ==

== ENCOUNTER 2022-04-04 17:02 | Outpatient (CLI) | payer MEDICARE, OTHER, MEDICAID | END 2022-04-04 17:03 | disposition left against medical advice (07) | LOC: EMS 17:02 | DX: R06.09 Other forms of dyspnea (principal) ==

== ENCOUNTER 2022-05-30 10:16 | Outpatient (CLI) | payer MEDICARE, OTHER, MEDICAID ==
--- NOTE | 2022-05-30 14:38 | XRAY Report ---
PROCEDURE: Chest 2 View X-Ray INDICATIONS: CHEST PX TECHNIQUE: 2 views of the chest were acquired. COMPARISON: 01/03/2021 FINDINGS: Surgical changes and devices: None. Lungs and pleura: There is elevation of right hemidiaphragm with suggestion of right-sided pleural ef fusion and right mid to lower lobe atelectasis. Atelectasis in left lung base is also seen adjacent t o patient's no hiatal hernia. No pneumothorax. Pulmonary vascular congestion is seen. Mediastinum: Mediastinal contours are normal. Heart size is enlarged. Bones and chest wall: No suspicious bony abnormalities. Large hiatal hernia is again noted with kleber cent bibasilar atelectasis. IMPRESSION: Large hiatal hernia with bibasilar atelectasis. Superimposed right-sided pleural effusion and right l ower lobe infiltrate/atelectasis is also likely present. No gross pneumothorax. Pulmonary vascular co ngestion. Reviewed by: Pj Alfonso MD on 05/30/2022 2:36 PM PST Approved by: Pj Alfonso MD on 05/30/2022 2:36 PM PST Station ID: [id number]
== END 2022-05-30 10:17 | disposition home or self-care (01) ==
LOC: DI.N 10:16
PROVIDERS: ATTEND Family Medicine
DX: K44.9 Diaphragmatic hernia without obstruction or gangrene (principal); R18.8 Other ascites

== ENCOUNTER 2022-06-01 09:19 | Outpatient (CLI) | payer MEDICARE, OTHER, MEDICAID ==
[2022-06-01] MEDS ORDERED: iohexoL-300 100 ML VIAL ONE (09:52)
[2022-06-01 10:05] LABS: CREATININE 0.9 mg/dL (0.6-1.2)
[2022-06-01] MEDS ORDERED: iohexoL-300 100 ML VIAL IVP ONE (10:36)
--- NOTE | 2022-06-01 10:58 | CT Report ---
PROCEDURE: CHEST W INDICATIONS: ABN CHEST XR CONTRAST:100ml Omnipaque 300 TECHNIQUE: After the administration of intravenous contrast, 1 mm axial images were acquired from the pulmonary apices through the posterior costophrenic angles. Axial 5 mm soft tissue kernel reconstructions were performed as well as 8 mm axial MIP and coronal and sagittal 5 mm reformations. For radiation dose reduction, the following was used: automated exposure control, adjustment of mA and/or kV according to patient size. COMPARISON: 12/11/2020. FINDINGS: Image quality: Excellent. Lungs and pleura: No acute air space opacities. No pleural effusions or pneumothorax. Previously, t he right hemidiaphragm was in normal position. It is now markedly elevated. There is associated right basilar atelectasis. Central and peripheral airways are patent and normal in caliber. Mediastinum: Heart size is normal. No pericardial effusion. No mediastinal or hilar adenopathy by size criteria. Thoracic aorta and central pulmonary arteries are normal in size. Esophagus is kole l in caliber. Moderate hiatal hernia. There are 2 focal presumed epicardial cysts present on the prev ious study. One of these fluid collections, immediately adjacent to the distal ascending aorta, is si gnificantly decreased, and the more inferior larger one has resolved. Bones and chest wall: No suspicious bony lesions. No vertebral body compression fractures. No axil brandon or supraclavicular adenopathy by size criteria. Thyroid is grossly unremarkable.. Abdomen: Mild diffuse hepatic steatosis. Visualized upper abdominal solid organs otherwise appear no rmal. Upper abdominal bowel loops are normal in caliber. IMPRESSION: 1. Interval development of marked elevation of the right hemidiaphragm. Consider development of a par alysis of the right hemidiaphragm. 2. Associated right basilar atelectasis. 3. Moderate hiatal hernia. 4. Significant interval decrease in fluid in the epicardial fat, an incidental finding. CLINICAL RECOMMENDATION STATEMENTS: In patients <35 years with an ITN detected on CT, MRI, or extrathyroidal ultrasound, the Committee re commends further evaluation with dedicated thyroid ultrasound if the nodule is "e1 cm and has no susp icious imaging features, and if the patient has normal life expectancy. In patients "e35 years with an ITN detected on CT, MRI, or extrathyroidal ultrasound, the Committee r ecommends further evaluation with dedicated thyroid ultrasound if the nodule is "e1.5 cm and has no s uspicious imaging features, and if the patient has normal life expectancy. (ACR, 2014) Reviewed by: Piotr Hammonds MD on 06/01/2022 10:57 AM [facility] Approved by: Piotr Hammonds MD on 06/01/2022 10:57 AM [facility] Station ID: [id number]
== END 2022-06-01 09:20 | disposition home or self-care (01) ==
LOC: LAB 09:19
PROVIDERS: ATTEND Family Medicine
DX: R91.8 Other nonspecific abnormal finding of lung field (principal); J98.6 Disorders of diaphragm; J98.11 Atelectasis; K44.9 Diaphragmatic hernia without obstruction or gangrene
CPT/HCPCS: 36415; 71260; 82565; Q9967

== ENCOUNTER 2022-06-12 10:13 | Outpatient (CLI) | payer MEDICARE, OTHER, MEDICAID ==
[2022-06-12 11:18] VITALS: BP 132/82
--- NOTE | 2022-06-12 11:18 | SLEEP CARE CONSULTATION ---
Information from patient questionnaire entered by Rehana Ruelas. I have reviewed and concur with the information entered by Rehana Ruelas. This document represents the service I personally performed and the decisions made by me, Luciano Alexandra MD, [facility]. History of Present Illness Service Date and Time: 06/12/2022 1013 Previous diagnosis: Extremely Severe, Obstructive Sleep Apnea-Hypopnea Syndrome AHI: 91.3 (in 2008) Reason for follow up: annual (LAST SEEN 12/2019) Equipment type: CPAP (DREAM STATION) Equipment obtained from: [facility] Mask style: Full face Prior sleep studies: Yes Year and Where: 2008 - [facility] HPI additional information: Mr. Stern was diagnosed to have very severe obstructive sleep apnea-hypopnea syndrome and returns today with his mother for annual follow up of CPAP therapy. The patient purchased the device from [facility] and was fitted with a full face mask. He continues to use the device nightly and all through the night. The compliance report shows that he uses the device 359 nights out of the past 365 nights, averaging 8.1 hours a night. The > 4 hour compliance rate for the past 365 days is 98%. He thinks that the pressure of 11 cmH2O is comfortable. On the CPAP therapy he notices improvement in his sleep quality, and that he wakes up feeling fresher in the morning and more awake/alert during the day. [place] Sleepiness Scale score is 0. The average residual AHI is 2.8; and large leak, 2 minutes a night. His Respironics REMstar Pro CPAP is now 7 years old. Sleep Study - Results Prior sleep studies: Yes Year and Where: 2008 - [facility] Sleep Subjective Initial [place] Sleepiness Scale score: 1 (in 2007) Allergies and Home Medications Drug allergies reviewed: Yes Home medication list reviewed: Yes Allergy and home medication list: Allergies No Known Drug Allergies Allergy (Verified 02/28/18 13:34) Review of Systems Review of systems same as previous: Yes Physical Exam Vital signs obtained and entered by: REHANA Arceo MA Blood Pressure: 132/82 (LEFT ARM) Cuff size: regular Heart Rate: 62 O2 Saturation: 92 Height: 5 ft 11 in Weight: 270 lb Body Mass Index: 37.6 BMI Classification: Obese Impression and Plan IMPRESSION: 1. Obstructive Sleep Apnea-Hypopnea Syndrome, very severe, with the patient continuing to do well on nasal CPAP therapy. He continues to have excellent compliance and significant clinical benefits. The current pressure appears effective and comfortable. Overall, he is very satisfied with treatment and plans to continue with it long-term. Because the CPAP is now older than the useful life of 5 years, I will order the patient a new one and make it an autoCPAP set between 8 and 12 cmH2O. The patient is interested in the Inspire procedure but he BMI is > 35, and, therefore, is not yet a candidate for it. PLAN: 1. Prescription made for an autoCPAP, heated humidifier, and related supplies. 2. Try to lose weight 3. Return for follow up after one month on the new machine. Prescriptions: Auto CPAP Follow up with Sleep Care in: 1-2 months Visit Type: In Office Time Spent with Patient (minutes): 15 Provider Statement: I spent 100% of the Face to Face Visit with the patient with greater than 50% spent counseling the patient and coordination of care.
== END 2022-06-12 10:14 | disposition home or self-care (01) ==
LOC: SC 10:13
PROVIDERS: ATTEND Internal Medicine Pulmonary Disease
DX: G47.33 Obstructive sleep apnea (adult) (pediatric) (principal); E66.9 Obesity, unspecified; Z68.37 Body mass index [BMI] 37.0-37.9, adult
CPT/HCPCS: 99212; G0463

== ENCOUNTER 2022-08-11 14:12 | Outpatient (CLI) | payer MEDICARE, OTHER ==
[2022-08-11 17:46] LABS: BASOPHILS # (AUTO) 0.1 10^3/uL (0.0-0.1); BASOPHILS % (AUTO) 0.6 %; EOSINOPHILS # (AUTO) 0.2 10^3/uL (0.0-0.7); EOSINOPHILS % (AUTO) 2.1 %; HCT - HEMATOCRIT 46.5 % (42.0-52.0); HGB - HEMOGLOBIN 14.9 g/dL (14.0-18.0); LYMPHOCYTES # (AUTO) 1.1 10^3/uL (1.5-3.5); LYMPHOCYTES % (AUTO) 9.7 %; MEAN CORPUSCULAR HEMOGLOBIN 29.2 pg (27.0-31.0); MEAN PLATELET VOLUME 9.3 fL (7.4-11.4); NEUTROPHILS # (AUTO) 8.6 10^3/uL (1.5-6.6); NEUTROPHILS % (AUTO) 78.1 %; PLT - PLATELET COUNT 447 10^3/uL (130-450); RED BLOOD COUNT 5.11 10^6/uL (4.70-6.10); RED CELL DISTRIBUTION WIDTH 14.4 % (12.0-15.0)
[2022-08-11 17:49] LABS: CALCIUM 9.6 mg/dL (8.5-10.3); CREATININE 0.9 mg/dL (0.6-1.2); POTASSIUM 4.8 mmol/L (3.5-5.0)
== END 2022-08-11 23:59 | disposition home or self-care (01) ==
LOC: LAB.R 14:12
PROVIDERS: ATTEND Family Medicine
DX: I10 Essential (primary) hypertension (principal); R60.0 Localized edema
CPT/HCPCS: 80048; 85025

== ENCOUNTER 2022-09-07 09:55 | Outpatient (CLI) | payer MEDICARE, OTHER ==
--- NOTE | 2022-09-08 07:07 | XRAY Report ---
PROCEDURE: Chest 2 View X-Ray INDICATIONS: CHEST PAIN TECHNIQUE: Frontal, lateral, decubitus views of the chest COMPARISON: CT chest 06/01/2022, chest radiographs 05/30/2022 FINDINGS: Surgical changes and devices: None. Lungs and pleura: Lung volumes are low. Streaky right basilar opacities are present. No definite ple ural effusion or pneumothorax. Elevation of the right hemidiaphragm. Mediastinum: Cardiac silhouette is enlarged. Previously visualized hiatal hernia not well visualized on the current study Bones and chest wall: No suspicious bony lesions. Overlying soft tissues appear unremarkable. IMPRESSION: Lung volumes are low with right basilar opacities present likely representing atelectasis, aspiration or pneumonia are not excludable. Cardiac silhouette is enlarged without definite evidence of pulmonary edema at this time. Reviewed by: Catarino Emery MD on 09/07/2022 1:01 PM PDT Approved by: Catarino Emery MD on 09/07/2022 1:01 PM PDT Station ID: [id number]
== END 2022-09-07 09:56 | disposition home or self-care (01) ==
LOC: DI 09:55
PROVIDERS: ATTEND Family Medicine
DX: R07.9 Chest pain, unspecified (principal); I51.7 Cardiomegaly

== ENCOUNTER 2022-10-19 13:04 | Outpatient (CLI) | payer MEDICARE, OTHER ==
--- NOTE | 2022-10-19 16:46 | MRI Report ---
PROCEDURE: THORACIC SPINE WO INDICATIONS: THORACIC SPINE PAIN TECHNIQUE: Noncontrast sagittal T1 spine echo and T2 fast spin echo, sagittal STIR, axial T1 and T2 fast spin ec ho through the thoracic spine. COMPARISON: Chest CT dated 06/01/2022 FINDINGS: Image quality: Excellent. Alignment and Curvature: There is mild diffuse thoracic kyphosis. Bone Marrow: Marrow is of normal overall signal. No acute vertebral body compression fractures. Mi ld reactive signal throughout the endplates of the thoracic and upper lumbar spine. Severe chronic ap pearing wedging of T11. Spinal Cord: Visualized spinal cord is normal in size and signal. Paraspinous Soft Tissues: There is an incompletely visualized region of high T1/T2 signal intensity w ithin the right posterior medial thorax at the T7 level, with no correlate by chest CT examination. Disc space levels: Multilevel disc desiccation. Mild multilevel canal stenoses. No significant forami nal stenosis. IMPRESSION: 1. Multilevel degenerative disc disease. No evidence of neural impingement. 2. Severe chronic T11 compression fracture. 3. Indeterminate fat-containing focus within the right medial thorax as described above. Initial furt her assessment with chest CT with intravenous contrast is recommended. Reviewed by: Tonny Casiano MD on 10/19/2022 4:44 PM PDT Approved by: Tonny Casiano MD on 10/19/2022 4:44 PM PDT Station ID: [id number]
== END 2022-10-19 13:05 | disposition home or self-care (01) ==
LOC: DI 13:04
PROVIDERS: ATTEND Anesthesiology
DX: M51.34 Other intervertebral disc degeneration, thoracic region (principal); M48.54XS Collapsed vertebra, not elsewhere classified, thoracic region, sequela of fracture

== ENCOUNTER 2022-12-11 14:14 | Outpatient (CLI) | payer MEDICARE, OTHER ==
--- NOTE | 2022-12-11 15:02 | SLEEP CARE CONSULTATION ---
Information from patient questionnaire entered by Rehana Ruelas. I have reviewed and concur with the information entered by Rehana Ruelas. This document represents the service I personally performed and the decisions made by me, Luciano Alexandra MD, [facility]. History of Present Illness Service Date and Time: 12/11/2022 1414 Previous diagnosis: Extremely Severe, Obstructive Sleep Apnea-Hypopnea Syndrome AHI: 91.3 (in 2008) Reason for follow up: first compliance Equipment type: CPAP (DREAM STATION) Equipment obtained from: [facility] Mask style: Full face Prior sleep studies: Yes Year and Where: 2008 - [facility] Sleep HPI additional information: Mr. Stern was diagnosed to have very severe obstructive sleep apnea-hypopnea syndrome and returns today with his mother for annual follow up of CPAP therapy. The patient recently acquired a new ResMed AirSense 11 from [facility]. He wears a full face mask. He uses the device nightly and all through the night. The compliance report shows that he uses the device 90 nights out of the past 90 nights, averaging 8.1 hours a night. The > 4 hour compliance rate for the past 90 days is 100%. He thinks that the pressure of 8 - 12 cmH2O is too low, especially at the beginning of the night. He also reports the machine feeling very warm to touch. On the CPAP therapy he notices improvement in his sleep quality, and that he wakes up feeling fresher in the morning and more awake/alert during the day. [place] Sleepiness Scale score is 4. The average residual AHI is 8.6 (was 2.8); and large leak, 0 minutes a night. The 90th percentile pressure is 11.8 cmH2O. 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 Sleep Study - Results Prior sleep studies: Yes Year and Where: 2008 - [facility] CPAP Compliance Data - Data Reviewed with Patient Average duration of nightly device use: 8HRS 5MIN Compliance rate %: 100 (11/07/22-12/06/22) Current pressure setting (cmH2O): 8-12 Average residual AHI: 8.4 Subjective Initial [place] Sleepiness Scale score: 1 (in 2007) Allergies and Home Medications Drug allergies reviewed: Yes Home medication list reviewed: Yes Allergy and home medication list: Allergies morphine Allergy (Verified 12/08/22 10:35) Review of Systems Review of systems same as previous: Yes Physical Exam Vital signs obtained and entered by: REHANA Arceo MA Blood Pressure: 126/64 (LEFT ARM) Cuff size: long Heart Rate: 60 O2 Saturation: 94 Height: 5 ft 11 in Weight: 282 lb 3.2 oz Body Mass Index: 39.3 BMI Classification: Obese Impression and Plan IMPRESSION: 1. Obstructive Sleep Apnea-Hypopnea Syndrome, very severe (AHI was 91.3 in 2008), with the patient continuing to do well on nasal CPAP therapy. He continues to have excellent compliance and significant clinical benefits. The current pressure appears slightly ineffective and uncomfortable. I will turn off the ramp which is set at 4 cmH2O and 30 minutes. I will raise the pressure range. Because his machine appears to heat up despite not having water in the reservoir, I will lower the humidity to 1. PLAN: 1. AutoCPAP raised to 10 14 cmH2O and ramp turned off. 2. Humidity lowered to 1 and tube heat turned off. 3. Return for follow up in two months. Adjust device pressure to (cmH2O): 10 - 14 Counseling Topics: Weight control Follow up with Sleep Care in: 1-2 months Visit Type: In Office Time Spent with Patient (minutes): 15 Provider Statement: I spent 100% of the Face to Face Visit with the patient with greater than 50% spent counseling the patient and coordination of care.
[2022-12-11 15:03] VITALS: BP 126/64
== END 2022-12-11 14:15 | disposition home or self-care (01) ==
LOC: SC 14:14
PROVIDERS: ATTEND Internal Medicine Pulmonary Disease
DX: G47.33 Obstructive sleep apnea (adult) (pediatric) (principal); E66.9 Obesity, unspecified; Z68.39 Body mass index [BMI] 39.0-39.9, adult
CPT/HCPCS: 99212; G0463

== ENCOUNTER 2023-02-12 13:46 | Outpatient (CLI) | payer MEDICARE, OTHER ==
--- NOTE | 2023-02-12 17:05 | SLEEP CARE CONSULTATION ---
Information from patient questionnaire entered by Rehana Ruelas. I have reviewed and concur with the information entered by Rehana Ruelas. This document represents the service I personally performed and the decisions made by me, Luciano Alexandra MD, [facility]. History of Present Illness Service Date and Time: 02/12/2023 1346 Previous diagnosis: Extremely Severe, Obstructive Sleep Apnea-Hypopnea Syndrome AHI: 91.3 (in 2008) Reason for follow up: other (2 MONTH F/U) Equipment type: CPAP (RESMED) Equipment obtained from: [facility] Mask style: Full face Prior sleep studies: Yes Year and Where: 2008 - [facility] Sleep HPI additional information: Mr. Stern was diagnosed to have very severe obstructive sleep apnea-hypopnea syndrome and returns today with his mother for annual follow up of CPAP therapy. The patient recently acquired a new ResMed AirSense 11 from [facility]. He wears a full face mask. He uses the device nightly and all through the night. The compliance report shows that he uses the device 90 nights out of the past 90 nights, averaging 8.1 hours a night. The > 4 hour compliance rate for the past 90 days is 100%. He thinks that the pressure of 10 - 14 cmH2O is comfortable. He complains of dry mouth. On the CPAP therapy he notices improvement in his sleep quality, and that he wakes up feeling fresher in the morning and more awake/alert during the day. [place] Sleepiness Scale score is 4. The average residual AHI is 1.9 (was 8.6); and average air leak is 1 L/minute. The 90th percentile pressure is 13.2 cmH2O. Sleep Study - Results Prior sleep studies: Yes Year and Where: 2008 - [facility] CPAP Compliance Data - Data Reviewed with Patient Average duration of nightly device use: 7HRS 57MINS Compliance rate %: 100 (12/11/22-02/08/23) Current pressure setting (cmH2O): 10-14 Average residual AHI: 1.9 Subjective Initial [place] Sleepiness Scale score: 1 (in 2007) Current [place] Sleepiness Scale score: 1 (02/12/23) Allergies and Home Medications Drug allergies reviewed: Yes Home medication list reviewed: Yes Allergy and home medication list: Allergies morphine Allergy (Verified 02/09/23 16:18) Review of Systems Review of systems same as previous: Yes Physical Exam Vital signs obtained and entered by: REHANA Arceo MA Blood Pressure: 116/68 (LEFT ARM) Cuff size: regular Heart Rate: 76 O2 Saturation: 98 Height: 5 ft 11 in Weight: 290 lb 9.6 oz Body Mass Index: 40.5 BMI Classification: Morbidly Obese Impression and Plan IMPRESSION: 1. Obstructive Sleep Apnea-Hypopnea Syndrome, very severe (AHI was 91.3 in 2008), with the patient continuing to do well on nasal CPAP therapy. He continues to have excellent compliance and significant clinical benefits. The current pressure appears effective and comfortable. However, he still snores on the CPAP. I will raise the pressure further. PLAN: 1. AutoCPAP raised to 12 - 16 cmH2O. 2. Humidity raised to 2 and tube heat turned off. 3. Return for a follow up in a year or earlier if there is any problem. Adjust device pressure to (cmH2O): 12 - 16 Counseling Topics: Weight control Follow up with Sleep Care in: 1 year Visit Type: In Office Time Spent with Patient (minutes): 15 Provider Statement: I spent 100% of the Face to Face Visit with the patient with greater than 50% spent counseling the patient and coordination of care.
[2023-02-12 17:09] VITALS: BP 116/68; O2SAT 98
== END 2023-02-12 13:47 | disposition home or self-care (01) ==
LOC: SC 13:46
PROVIDERS: ATTEND Internal Medicine Pulmonary Disease
DX: G47.33 Obstructive sleep apnea (adult) (pediatric) (principal); E66.01 Morbid (severe) obesity due to excess calories; Z68.41 Body mass index [BMI] 40.0-44.9, adult
CPT/HCPCS: 99212; G0463

== ENCOUNTER 2023-07-19 08:45 | Outpatient (CLI) | payer MEDICARE, OTHER ==
--- NOTE | 2023-07-19 10:08 | Ultrasound Report ---
PROCEDURE: Duplex Ext Veins Right INDICATIONS: R LEG PAIN TECHNIQUE: Real-time imaging, as well as color and pulse Doppler interrogation, were performed of the lower extr emity deep veins from the inguinal ligament to the popliteal fossa. Attempted visualization of the ca lf veins was performed. COMPARISON: None. 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 One of these paired veins demonstrate s luggish flow but is compressible. Distal augmentation was not performed as to not dislodge any possib le thrombus. These findings were discussed with the digital sales executive via telephone. The remainder of the deep veins are normally compressible, and free of intraluminal thrombus. Color and pulse Doppler demonstrate normal phasic intraluminal flow. There is normal augmentation response to distal compression maneuver. IMPRESSION: 1.No definite deep venous thrombosis of the visualized lower extremity. 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 One of these paired veins demonstrate sluggish flow but is compressible suggesting there is no thrombus. Recommend a short interval follow -up in 1 week or sooner if symptoms worsen. Reviewed by: Stewart Rodrigues MD on 07/19/2023 10:07 AM [facility] Approved by: Stewart Rodrigues MD on 07/19/2023 10:07 AM PST Station ID: [id number]
== END 2023-07-19 08:46 | disposition home or self-care (01) ==
LOC: DI 08:45
PROVIDERS: ATTEND Family Medicine
DX: M79.604 Pain in right leg (principal)

== ENCOUNTER 2023-08-10 10:41 | Outpatient (CLI) | payer MEDICARE, OTHER ==
--- NOTE | 2023-08-10 13:23 | Ultrasound Report ---
PROCEDURE: Duplex Ext Veins Bilateral INDICATIONS: Agus Medardo Annika TECHNIQUE: Real-time imaging, as well as color and pulse Doppler interrogation, were performed of the deep veins of both legs from the inguinal ligament to the popliteal fossa. Attempted visualization of the calf veins was performed. COMPARISON: Venous duplex dated 07/19/2023. FINDINGS: The deep veins are normally compressible, and free of intraluminal thrombus. Color and pu lse Doppler demonstrate normal phasic intravascular flow. There is normal augmentation response to d istal compression maneuver. As before, a duplicated right popliteal vein is visualized. Slow flow is redemonstrated within the po pliteal vein; however there is no definite sonographic evidence for acute thrombus. The vein remains compressible as expected in a patent vessel. IMPRESSION: No deep venous thrombosis of the visualized lower extremities. Reviewed by: Mami Barnard MD on 08/10/2023 1:21 PM PST Approved by: Mami Barnard MD on 08/10/2023 1:21 PM PST Station ID: [id number]
== END 2023-08-10 10:42 | disposition home or self-care (01) ==
LOC: DI 10:41
PROVIDERS: ATTEND Family Medicine
DX: M79.604 Pain in right leg (principal); M79.605 Pain in left leg
CPT/HCPCS: 93970

== ENCOUNTER 2023-09-06 10:57 | Outpatient (CLI) | payer MEDICARE, OTHER ==
--- NOTE | 2023-09-06 21:10 | XRAY Report ---
PROCEDURE: Ankle 3+V RT INDICATIONS: CONTUSION OF RIGHT FOOT AND ANKLE TECHNIQUE: 3 views of the ankle were acquired. COMPARISON: None. FINDINGS: Bones: No fractures or dislocations. Ankle mortise is normally aligned. No suspicious bony lesions . Soft tissues: No tibiotalar joint effusion. Achilles tendon appears normal. IMPRESSION: No acute bony abnormality. Ankle mortise is congruent. Reviewed by: Pj Peace MD on 09/06/2023 9:09 PM PDT Approved by: Pj Peace MD on 09/06/2023 9:09 PM PDT Station ID: [id number]
--- NOTE | 2023-09-06 21:12 | XRAY Report ---
PROCEDURE: Foot 3+V RT INDICATIONS: CONTUSION OF RIGHT FOOT AND ANKLE TECHNIQUE: 3 views of the foot were acquired. COMPARISON: None. FINDINGS: Bones: No fractures or dislocations. Osteoarthritic changes are noted in right forefoot most notabl y involving first MTP joint. No suspicious bony lesions. Soft tissues: No tibiotalar joint effusion. Achilles tendon appears normal. IMPRESSION: No acute bony abnormality. 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 Reviewed by: Pj Peace MD on 09/06/2023 9:10 PM PDT Approved by: Pj Peace MD on 09/06/2023 9:10 PM PDT Station ID: [id number]
== END 2023-09-06 10:58 | disposition home or self-care (01) ==
LOC: DI.N 10:57
PROVIDERS: ATTEND Family Medicine
DX: M19.071 Primary osteoarthritis, right ankle and foot (principal)

== ENCOUNTER 2023-12-11 15:09 | Outpatient (CLI) | payer MEDICARE, OTHER, MEDICAID | END 2023-12-11 15:10 | disposition critical access hospital (66) | LOC: EMS 15:09 | DX: R07.9 Chest pain, unspecified (principal); R11.0 Nausea | CPT/HCPCS: A0425; A0427 ==

== ENCOUNTER 2023-12-11 15:12 | Emergency (ER) | payer MEDICARE, OTHER, MEDICAID ==
[2023-12-11 15:49] LABS: BASOPHILS # (AUTO) 0.1 10^3/uL (0.0-0.1); BASOPHILS % (AUTO) 0.6 %; EOSINOPHILS # (AUTO) 0.2 10^3/uL (0.0-0.7); EOSINOPHILS % (AUTO) 2.4 %; HCT - HEMATOCRIT 43.4 % (42.0-52.0); HGB - HEMOGLOBIN 14.6 g/dL (14.0-18.0); LYMPHOCYTES # (AUTO) 1.2 10^3/uL (1.5-3.5); LYMPHOCYTES % (AUTO) 13.5 %; MEAN CORPUSCULAR HEMOGLOBIN 30.4 pg (27.0-31.0); MEAN CORPUSCULAR HGB CONC 33.6 g/dL (32.0-36.0); MEAN CORPUSCULAR VOLUME 90.2 fL (80.0-94.0); MEAN PLATELET VOLUME 8.9 fL (7.4-11.4); MONOCYTES # (AUTO) 0.9 10^3/uL (0.0-1.0); MONOCYTES % (AUTO) 9.7 %; NEUTROPHILS # (AUTO) 6.5 10^3/uL (1.5-6.6); NEUTROPHILS % (AUTO) 73.5 %; PLT - PLATELET COUNT 240 10^3/uL (130-450); RED BLOOD COUNT 4.81 10^6/uL (4.70-6.10); RED CELL DISTRIBUTION WIDTH 13.2 % (12.0-15.0); WHITE BLOOD COUNT 8.9 x10^3/uL (4.8-10.8)
[2023-12-11 16:06] LABS: ALBUMIN/GLOBULIN RATIO 1.5 (1.0-2.2); CALCIUM 9.9 mg/dL (8.5-10.3); CREATININE 1.1 mg/dL (0.6-1.3); POTASSIUM 3.3 mmol/L (3.5-4.5); TOTAL PROTEIN 6.6 g/dL (6.4-8.9)
[2023-12-11 16:08] LABS: TROPONIN I HIGH SENSITIVITY 4.8 ng/L (2.3-19.7)
--- NOTE | 2023-12-11 16:08 | XRAY Report ---
PROCEDURE: Chest 1V INDICATIONS: Chest Pain TECHNIQUE: One view of the chest was acquired. COMPARISON: Chest x-ray 09/07/2022 FINDINGS: Surgical changes and devices: None. Lungs and pleura: Persistent right hemidiaphragm elevation. Mediastinum: Mediastinal contours appear normal. Heart size is enlarged. Bones and chest wall: No suspicious bony lesions. Overlying soft tissues appear unremarkable. IMPRESSION: No acute cardiopulmonary process. Reviewed by: Yessi Hill MD on 12/11/2023 4:06 PM PDT Approved by: Yessi Hill MD on 12/11/2023 4:06 PM PDT Station ID: [id number]
--- NOTE | 2023-12-11 16:17 | ED Physician Documentation ---
PD HPI CHEST PAIN - Stated complaint Stated Complaint: CP - Chief complaint Chief Complaint: Cardiac - History obtained from History obtained from: Patient, Family - History of Present Illness Timing - onset: How many hours ago (3.5) Timing - onset during: Rest Timing - duration: Minutes (10) Timing - details: Gradual onset Pain level max: 6 Pain level now: 5 Quality: Pressure Location: Substernal, Epigastric Radiation: No: Jaw, Neck, Back, Abdominal, Left upper extremity, Right upper extremity Associated symptoms: Nausea, Vomiting ("dry heave"). No: Shortness of air, Gabbi phoresis, Feeling faint / dizzy, General Weakness, Palpitations - Additional information Additional information: 53-year-old male, states that he had epigastric and substernal abdominal pain several hours ago at home. Last about 10 minutes. [place] like a pressure. Has not had similar symptoms previously. No change with walking or exertion. No ACS history. No shortness of breath or diaphoresis. Asymptomatic for the past several hours. Asymptomatic here. Patient did have intermittent atrial fibrillation in the past. Review of Systems Constitutional: denies: Fever, Chills Cardiac: denies: Chest pain / pressure, Palpitations Respiratory: denies: Cough GI: denies: Hematemesis, Bloody / black stool : denies: Dysuria Skin: denies: Rash Musculoskeletal: denies: Neck pain, Back pain Neurologic: denies: Headache PD PAST MEDICAL HISTORY - Past Medical History Past Medical History: Yes Cardiovascular: Hypertension, High cholesterol, Atrial fibrillation GI: GERD - Past Surgical History Past Surgical History: Yes - Present Medications Home Medications: Ambulatory Orders Medication Instructions Recorded Confirmed Aspirin Chewable [[place] 81 mg PO DAILY 12/01/13 06/12/22 Aspirin] Atorvastatin [Lipitor] 20 mg PO DAILY 12/01/13 06/12/22 Chlorthalidone 12.5 mg PO DAILY 12/01/13 06/12/22 Clonazepam 0.5 mg PO Q4HR PRN 12/01/13 06/12/22 Dithen/Atrop 2.5 mg PO TID 12/01/13 06/12/22 Ibuprofen 600 mg PO TID PRN 12/01/13 06/12/22 Ibuprofen [Motrin] 800 mg PO Q8H PRN #30 tablet 12/01/13 06/12/22 Losartan [Cozaar] 25 mg PO DAILY 12/01/13 06/12/22 Naftifine HCl [Naftin] 40 gm TP BID 12/01/13 06/12/22 Olmesartan Medoxomil [Benicar] 20 mg PO DAILY 12/01/13 06/12/22 Omeprazole 20 mg PO DAILY 12/01/13 06/12/22 Propranolol [Inderal] 40 mg PO BID 12/01/13 06/12/22 Simvastatin 20 mg PO DAILY 12/01/13 06/12/22 Sucralfate [Carafate] 1 gm PO ACHS #60 tablet 02/28/18 06/12/22 Celecoxib [CeleBREX] See Rx Instructions .ROUTE .COMPLEX 06/12/22 06/12/22 Metoprolol/Hydrochlorothiazide See Rx Instructions .ROUTE .COMPLEX 06/12/22 06/12/22 [Metoprolol-Hctz 100-50 mg Tab] - Allergies Allergies/Adverse Reactions: Allergies Allergy/AdvReac Type Severity Reaction Status Date / Time morphine Allergy Unknown Verified 12/11/23 15:20 - Social History Does the pt smoke?: No Smoking Status: Never smoker Does the pt drink ETOH?: No Does the pt have substance abuse?: No - Immunizations Immunizations are current?: Yes - POLST Patient has POLST: No PD ED PE NORMAL - Vitals Vital signs reviewed: Yes - General General: Alert and oriented X 3, No acute distress - HEENT HEENT: Moist mucous membranes - Neck Neck: Supple, no meningeal sign - Cardiac Cardiac: RRR, Strong equal pulses - Respiratory Respiratory: No respiratory distress, Clear bilaterally - Abdomen Abdomen: Soft, Non tender, Non distended - Back Back: No spinal TTP - Derm Derm: Warm and dry - Extremities Extremities: No edema, No calf tenderness / cord - Neuro Neuro: Alert and oriented X 3 - Psych Psych: Normal mood, Normal affect Results - Vitals Vitals: Vital Signs - 24 hr 12/11/23 12/11/23 12/11/23 15:20 15:55 16:25 Temperature 36.5 C Heart Rate 62 56 L 57 L Respiratory 16 20 24 Rate Blood Pressure 134/78 H 123/76 120/72 O2 Saturation 96 94 94 12/11/23 12/11/23 12/11/23 16:30 17:00 17:30 Temperature 36.8 C 36.5 C Heart Rate 60 60 52 L Respiratory 22 18 20 Rate Blood Pressure 122/70 124/72 111/72 O2 Saturation 96 98 94 Oxygen O2 Source Room air - EKG (time done) 1605 EKG releavant findings:: EKG personally interpreted by author of this note. Relevant findings are: Rate: Rate (enter#) (56) Rhythm: NSR [place]: Other (LAFB) Intervals: Normal OR, RBBB - Labs Labs: Laboratory Tests 12/11/23 12/11/23 12/11/23 15:40 15:40 17:14 WBC 8.9 RBC 4.81 Hgb 14.6 Hct 43.4 MCV 90.2 MCH 30.4 MCHC 33.6 RDW 13.2 Plt Count 240 MPV 8.9 Neut # (Auto) 6.5 Lymph # (Auto) 1.2 L Amelia # (Auto) 0.9 Eos # (Auto) 0.2 Baso # (Auto) 0.1 Absolute Nucleated RBC 0.00 Nucleated RBC % 0.0 Sodium 137 Potassium 3.3 L Chloride 101 Carbon Dioxide 27 Anion Gap 9.0 BUN 24 H Creatinine 1.1 Estimated GFR (MDRD) 69 L Glucose 102 Calcium 9.9 Total Bilirubin 1.0 AST 100 H ALT 65 H Alkaline Phosphatase 115 Troponin I High Sens 4.8 4.8 Total Protein 6.6 Albumin 4.0 Globulin 2.6 Albumin/Globulin Ratio 1.5 Lipase 14 - Rads (name of study) cxr Relevant Findings:: Final report received, See rad report PD Medical Decision Making - ED course Complexity details: reviewed results, re-evaluated patient, considered differential (No ST elevation CO, no aortic dissection, no PE, no tension pneumothorax, no aortic aneurysm), d/w patient ED course: Patient is well-appearing, nontoxic. Afebrile. Asymptomatic care. Negative high sensitive troponin x 2. Normal EKG. Normal chest x-ray. Tolerating p.o. without difficulty. Ambulating without difficulty. No evidence of acute CO. Recommend he follow-up with his doctor for cardiac stress test. Patient counseled regarding signs and symptoms for which I believe and urgent re- evaluation would be necessary. Patient with good understanding of and agreement to plan and is comfortable going home at this time This document was made in part using voice recognition software. While efforts are made to proofread this document, sound alike and grammatical errors may occur. Departure - Departure Disposition: 01 Home, Self Care Clinical Impression: Atypical chest pain Condition: Good Instructions: ED Chest Pain Atypical Unkn Cause Follow-Up: your,doctor in 1 week [Other] Comments: The cause of your chest pain today is unclear. Please follow-up with your doctor for further care. It does not appear to be related to your heart. It is recommended you have a cardiac stress test with your doctor. Please return if you worsen. Your testing today does not show any acute abnormalities on your EKG, laboratory testing or chest x-ray. Forms: PCP List Discharge Date/Time: 12/11/23 17:59
[2023-12-11 17:51] VITALS: BP 111/72; O2SAT 94
== END 2023-12-11 17:59 | disposition home or self-care (01) ==
LOC: EDUNIT# → ED 15:12
DX: R07.89 Other chest pain (principal); I10 Essential (primary) hypertension; I48.91 Unspecified atrial fibrillation; E78.00 Pure hypercholesterolemia, unspecified; Z79.82 Long term (current) use of aspirin; Z79.899 Other long term (current) drug therapy
CPT/HCPCS: 36415; 80053; 83690; 84484; 85025; 93005; 99284

== ENCOUNTER 2023-12-17 08:34 | Outpatient (CLI) | payer MEDICARE, OTHER, MEDICAID ==
--- NOTE | 2023-12-18 10:22 | Ultrasound Report ---
PROCEDURE: Duplex Ext Veins Right INDICATIONS: PAIN IN R LEG TECHNIQUE: Real-time imaging, as well as color and pulse Doppler interrogation, were performed of the lower extr emity deep veins from the inguinal ligament to the popliteal fossa. Attempted visualization of the ca lf veins was performed. COMPARISON: None. FINDINGS: The deep veins are normally compressible, and free of intraluminal thrombus. Color and pu lse Doppler demonstrate normal phasic intraluminal flow. There is normal augmentation response to di stal compression maneuver. Duplicated popliteal and peroneal veins. IMPRESSION: No deep venous thrombosis of the visualized RIGHT lower extremity. Reviewed by: Cassuis Hook MD on 12/18/2023 10:21 AM PDT Approved by: Cassius Hook MD on 12/18/2023 10:21 AM PDT Station ID: [id number]
== END 2023-12-17 08:35 | disposition home or self-care (01) ==
LOC: DI 08:34
PROVIDERS: ATTEND Family Medicine
DX: M79.661 Pain in right lower leg (principal)

== ENCOUNTER 2024-01-03 11:25 | Outpatient (CLI) | payer MEDICARE, OTHER, MEDICAID | END 2024-01-03 11:26 | disposition home or self-care (01) | LOC: LAB 11:25 | PROVIDERS: ATTEND Family Medicine | DX: R07.9 Chest pain, unspecified (principal) | CPT/HCPCS: 36415; 85379 ==

== ENCOUNTER 2024-01-11 16:57 | Outpatient (CLI) | payer MEDICARE, OTHER, MEDICAID ==
[2024-01-11] MEDS ORDERED: iohexoL-300 100 ML VIAL ONE (17:06)
[2024-01-11] MEDS: iohexoL-300 100 ML VIAL IVP ONE (17:30)
--- NOTE | 2024-01-14 14:24 | CT Report ---
PROCEDURE: Angio Chest INDICATIONS: CHEST PAIN CONTRAST: 80ml omni 300 TECHNIQUE: After the administration of intravenous contrast, 2 mm axial images were acquired from the pulmonary apices to the posterior costophrenic angles during the arterial phase. In addition, 1 mm lung kernel and 5 mm soft tissue kernel reconstructions were performed. 3-dimensional coronal oblique maximum int ensity projection (MIP) reformats, 8 mm axial MIP, and 5 mm coronal and sagittal MPR reformats were t hen performed through the thorax. For radiation dose reduction, the following was used: automated exp osure control, adjustment of mA and/or kV according to patient size. COMPARISON: None. FINDINGS: Image quality: Excellent. Large vessels: No evidence of aortic aneurysm or dissection. Suggestion of enlarged pulmonary artery up to 3.6cm. Lungs and pleura: Right basilar consolidation limiting evaluation of pulmonary parenchyma.No pleural effusions. No pneumothorax. No suspicious pulmonary nodules which require follow up. Mediastinum: Cardiomegaly with left atrial prominence. Suggestion of atrial septal defect. . No peric ardial effusion. Anomalous branching of the aorta; both carotids and the right brachiocephalic artery appeared to have common trunk. No mediastinal adenopathy by size criteria. Chest wall and lower neck: Thyroid is unremarkable. No axillary or supraclavicular adenopathy by size . Bones: Compression deformity of lower thoracic/upper lumbar vertebral body with approximately 80% hei ght loss of unknown chronicity. Upper Abdomen: Large partial gastric volvulus. IMPRESSION: 1. Cardiomegaly, left atrial prominence, enlargement of the main pulmonary artery, possible atrial se ptal defect. Anomalous branching of the carotids. Recommend cardiac echo to further evaluate. 2. 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 Compression fracture deformity of the lower thoracic versus upper lumbar vertebral body with appro ximately 80% height loss unknown chronicity. 4. Right lung base consolidation. Cannot totally rule out early pneumonia. 5. No evidence of pulmonary embolism Reviewed by: Cassius Hook MD on 01/14/2024 2:23 PM PDT Approved by: Cassius Hook MD on 01/14/2024 2:23 PM PDT Station ID: [id number]
== END 2024-01-11 16:58 | disposition home or self-care (01) ==
LOC: DI 16:57
PROVIDERS: ATTEND Family Medicine
DX: I51.7 Cardiomegaly (principal); K56.2 Volvulus; R91.8 Other nonspecific abnormal finding of lung field; R07.9 Chest pain, unspecified
CPT/HCPCS: 71275; Q9967